=== PATIENT | male | born 1975 | race Caucasian/White ===

== ENCOUNTER 2016-12-05 11:01 | Observation (INO) | payer BC, OTHER ==
[~2016-12-05] VITALS: Ht 182.9 cm; Wt 131.3 kg
[~2016-12-05 11:01] MED LIST: CEFTIN500 MG PO; ZOFRAN4 MG PO
[2016-12-05 11:51] LABS: HEMATOCRIT 46.7 % (38.0-50.0); MCH 28.5 PG (29.0-34.0); MCHC 34.9 G/DL (30.0-36.0); MCV 81.6 FL (86-99); PLATELET COUNT 213 K/uL (156-360); RBC DIS.WIDTH-CV 12.5 % (11.8-14.6); RBC DIS.WIDTH-SD 37.1 % (39-53); RED BLOOD COUNT 5.72 M/uL (4.00-5.50); WHITE BLOOD COUNT 11.3 K/uL (4.1-10.2)
[2016-12-05 12:29] LABS: ANION GAP 9 MEQ/L (2-14); CHLORIDE 107 MEQ/L (99-109); GFR ESTIMATE (CALCULATED) > 59 mL/min/; GLUCOSE 91 mg/dL (70-99); POTASSIUM 3.8 MEQ/L (3.7-5.4); SAMPLE HEMOLYSIS CHECK 0; SAMPLE ICTERIC CHECK 0; SAMPLE LIPEMIA CHECK 0; SODIUM 140 MEQ/L (136-147); UREA NITROGEN (BUN) 13 mg/dL (9-23)
[2016-12-05 12:35] LABS: TROP-I INTERPRETATION NEGATIVE; TROPONIN-I 0.02 ng/mL (0.0-0.30)
[2016-12-05 12:39] LABS: MAGNESIUM 1.9 mg/dl (1.3-2.7)
[2016-12-05 17:57] VITALS: BP 137/83
[2016-12-05 18:50] LABS: HDL CHOLESTEROL 29 MG/DL (Desirable>=40); LDL CHOLESTEROL 59 mg/dL (Desirable<100); NON-HDL CHOLESTEROL 114 mg/dL (Desirable<160); TOTAL CHOLESTEROL 143 mg/dL (Desirable<200); TRIGLYCERIDES 273 MG/DL (Normal: <150)
[2016-12-05 19:01] LABS: TROP-I INTERPRETATION NEGATIVE; TROPONIN-I 0.01 ng/mL (0.0-0.30)
[2016-12-05 20:18] VITALS: BP 159/74
[2016-12-06 00:02] VITALS: BP 122/59
[2016-12-06 00:46] LABS: TROP-I INTERPRETATION NEGATIVE; TROPONIN-I 0.02 ng/mL (0.0-0.30)
[2016-12-06 04:01] VITALS: BP 120/74
[2016-12-06 07:02] LABS: INTER. NORMALIZED RATIO 1.1; PROTHROMBIN TIME 10.8 (9.2-11.2)
[2016-12-06 07:20] LABS: HEMATOCRIT 40.7 % (38.0-50.0); MCH 28.1 PG (29.0-34.0); MCHC 34.4 G/DL (30.0-36.0); MCV 81.6 FL (86-99); MEAN PLAT.VOLUME 8.9 uM^3 (9.0-12.4); PLATELET COUNT 168 K/uL (156-360); RBC DIS.WIDTH-CV 12.7 % (11.8-14.6); RBC DIS.WIDTH-SD 37.6 % (39-53); RED BLOOD COUNT 4.99 M/uL (4.00-5.50)
[2016-12-06 07:21] VITALS: BP 141/76
[2016-12-06] MEDS ORDERED: ASPIR-LOW81 MG PO (08:18)
== END 2016-12-06 09:45 | disposition home or self-care (01) ==
LOC: EME 11:01 → EDOF 14:35 → 5WEST 14:35 → EDOF 14:35 → 5WEST 17:46
PROVIDERS: Nurse Practitioner Adult Health
PROC: 5A2204Z Restoration of Cardiac Rhythm, Single (ICD-10-PCS; principal; 2016-12-05)
DX: I48.0 Paroxysmal atrial fibrillation (principal); R07.89 Other chest pain; K50.90 Crohn's disease, unspecified, without complications; E78.5 Hyperlipidemia, unspecified; E66.9 Obesity, unspecified; Z68.39 Body mass index [BMI] 39.0-39.9, adult; Z87.891 Personal history of nicotine dependence
CPT/HCPCS: 71010; 80048; 80061; 83735; 83880; 84443; 84484; 85027; 85610; 93005; 99281; 99285; G0378; J1650; J3475; J7030

== ENCOUNTER 2017-02-24 12:40 | Emergency (ER) | payer BC, OTHER ==
[~2017-02-24] VITALS: Ht 188 cm; Wt 137.0 kg
[~2017-02-24 12:40] MED LIST changes: +ASPIR-LOW81 MG PO
[2017-02-24 13:33] LABS: EOSINOPHIL (%) 1.6 % (0-5); EOSINOPHIL COUNT 0.2 K/uL (0-0.3); HEMATOCRIT 46.8 % (38.0-50.0); IMMATURE GRANULOCYTE (%) 0.9 % (0.0-0.7); IMMATURE GRANULOCYTE COUNT 0.1 K/uL; INSTRUMENT ABS NEUTROPHIL CT 7.1 K/uL; LYMPHOCYTE COUNT 2.8 K/uL (1.0-2.8); MCH 28.4 PG (29.0-34.0); MCHC 35.3 G/DL (30.0-36.0); MCV 80.6 FL (86-99); MEAN PLAT.VOLUME 8.7 uM^3 (9.0-12.4); MONOCYTE (%) 6.5 % (3-12); MONOCYTE COUNT 0.7 K/uL (0-0.8); NEUTROPHIL COUNT 7.1 K/uL (1.8-6.4); PLATELET COUNT 196 K/uL (156-360); RBC DIS.WIDTH-CV 13.1 % (11.8-14.6); RBC DIS.WIDTH-SD 37.2 % (39-53); RED BLOOD COUNT 5.81 M/uL (4.00-5.50); WHITE BLOOD COUNT 10.9 K/uL (4.1-10.2)
[2017-02-24 13:43] LABS: CHLORIDE 110 mEq/L (99-109); POTASSIUM 3.6 mEq/L (3.7-5.4); SODIUM 138 mEq/L (136-147)
[2017-02-24 13:44] LABS: GLUCOSE 100 mg/dL (70-99)
[2017-02-24 13:46] LABS: ANION GAP 5 MEQ/L (2-14)
[2017-02-24 13:48] LABS: GFR ESTIMATE (CALCULATED) > 59 mL/min/
[2017-02-24 13:49] LABS: UREA NITROGEN (BUN) 15 mg/dL (9-23)
[2017-02-24 13:54] LABS: TROP-I INTERPRETATION NEGATIVE; TROPONIN-I < 0.01 ng/mL (0.0-0.30)
[2017-02-24 15:31] VITALS: BP 143/86
[2017-02-24] MEDS ORDERED: CARDIZEM LA120 MG PO (15:57)
== END 2017-02-24 18:26 | disposition home or self-care (01) ==
LOC: EME 12:40
PROVIDERS: Emergency Medicine
PROC: 5A2204Z Restoration of Cardiac Rhythm, Single (ICD-10-PCS; principal; 2017-02-24)
DX: I48.91 Unspecified atrial fibrillation (principal)
CPT/HCPCS: 71010; 80048; 84484; 85025; 93005; 99281; 99285; J0153

== ENCOUNTER 2017-08-07 23:56 | Emergency (ER) | payer BC, OTHER ==
[~2017-08-07] VITALS: Ht 182.9 cm; Wt 136.3 kg
[~2017-08-07 23:56] MED LIST changes: +CARDIZEM LA120 MG PO
[2017-08-08] MEDS ORDERED: PERCOCET 5/31 TABLET PO (01:33)
[2017-08-08] MEDS ORDERED: ULTRAM50 MG PO (01:33)
[2017-08-08 02:20] VITALS: BP 126/79
== END 2017-08-08 02:21 | disposition home or self-care (01) ==
LOC: EME 23:56
PROC: 0RSJXZZ Reposition Right Shoulder Joint, External Approach (ICD-10-PCS; principal; 2017-08-07)
DX: S43.014A Anterior dislocation of right humerus, initial encounter (principal); S00.81XA Abrasion of other part of head, initial encounter; Y04.2XXA Assault by strike against or bumped into by another person, initial encounter; W03.XXXA Other fall on same level due to collision with another person, initial encounter; I10 Essential (primary) hypertension
CPT/HCPCS: 73020; 73030; 99281; 99285; J3010

== ENCOUNTER 2018-02-14 02:47 | Emergency (ER) | payer BC, OTHER ==
[~2018-02-14] VITALS: Ht 182.9 cm; Wt 135.5 kg
[~2018-02-14 02:47] MED LIST changes: +PERCOCET 5/31 TABLET PO; +ULTRAM50 MG PO
[2018-02-14 03:22] LABS: BASOPHIL (%) 0.4 % (0-1); BASOPHIL COUNT 0.1 K/uL (0-0.1); EOSINOPHIL (%) 1.6 % (0-5); EOSINOPHIL COUNT 0.2 K/uL (0-0.3); HEMATOCRIT 41.3 % (38.0-50.0); HEMOGLOBIN 14.7 G/DL (12.5-16.6); IMMATURE GRANULOCYTE (%) 0.4 % (0.0-0.7); LYMPHOCYTE (%) 22.2 % (15-42); LYMPHOCYTE COUNT 2.6 K/uL (1.0-2.8); MCH 29.5 PG (29.0-34.0); MCHC 35.6 G/DL (30.0-36.0); MCV 82.8 FL (86-99); MONOCYTE (%) 9.1 % (3-12); MONOCYTE COUNT 1.1 K/uL (0-0.8); NEUTROPHIL (%) 66.3 % (45-76); NEUTROPHIL COUNT 7.8 K/uL (1.8-6.4); PLATELET COUNT 214 K/uL (156-360); RBC DIS.WIDTH-CV 12.8 % (11.8-14.6); RBC DIS.WIDTH-SD 38.4 % (39-53); RED BLOOD COUNT 4.99 M/uL (4.00-5.50); WHITE BLOOD COUNT 11.8 K/uL (4.1-10.2)
[2018-02-14 03:35] LABS: PTT 28.1 SEC (25-37)
[2018-02-14 03:37] LABS: ALBUMIN 3.7 g/dL (3.2-4.8); CHLORIDE 109 mEq/L (99-109); POTASSIUM 3.7 mEq/L (3.7-5.4); SODIUM 136 mEq/L (136-147)
[2018-02-14 03:39] LABS: GLUCOSE 97 mg/dL (70-99)
[2018-02-14 03:40] LABS: TOTAL PROTEIN 6.7 g/dL (6.4-8.3)
[2018-02-14 03:41] LABS: TOTAL BILIRUBIN 0.6 mg/dL (0.0-1.0)
[2018-02-14 03:43] LABS: ALKALINE PHOSPHATASE 93 IU/L (3-129); GFR ESTIMATE (CALCULATED) > 59 mL/min/ (58.99-99999)
[2018-02-14 03:44] LABS: UREA NITROGEN (BUN) 19 mg/dL (9-23)
[2018-02-14 03:45] LABS: AST (GOT) 57 IU/L (2-34)
[2018-02-14 03:46] LABS: ALT (GPT) 44 IU/L (3-49); LIPASE 39 U/L (1.0-51.0)
[2018-02-14 03:48] LABS: TROP-I INTERPRETATION NEGATIVE; TROPONIN-I < 0.01 ng/mL (0.0-0.30)
[2018-02-14 07:41] LABS: TROP-I INTERPRETATION NEGATIVE; TROPONIN-I < 0.01 ng/mL (0.0-0.30)
[2018-02-14 08:20] VITALS: BP 110/69
== END 2018-02-14 08:20 | disposition home or self-care (01) ==
LOC: EME 02:47
PROVIDERS: Emergency Medicine
PROC: 5A2204Z Restoration of Cardiac Rhythm, Single (ICD-10-PCS; principal; 2018-02-14)
DX: I48.91 Unspecified atrial fibrillation (principal); K21.9 Gastro-esophageal reflux disease without esophagitis; K50.90 Crohn's disease, unspecified, without complications; G43.909 Migraine, unspecified, not intractable, without status migrainosus; Z90.49 Acquired absence of other specified parts of digestive tract
CPT/HCPCS: 71045; 80053; 83690; 84484; 85025; 85610; 85730; 93005; 99281; 99285; J2690; J7030; J7050

== ENCOUNTER 2018-03-09 19:55 | Emergency (ER) | payer BC, OTHER ==
[~2018-03-09] VITALS: Ht 182.9 cm; Wt 133.4 kg
[2018-03-09 20:17] LABS: HEMATOCRIT 39.9 % (38.0-50.0); MCH 29.5 PG (29.0-34.0); MCHC 35.1 G/DL (30.0-36.0); MCV 84.2 FL (86-99); PLATELET COUNT 251 K/uL (156-360); RBC DIS.WIDTH-CV 12.8 % (11.8-14.6); RBC DIS.WIDTH-SD 39.3 % (39-53); RED BLOOD COUNT 4.74 M/uL (4.00-5.50); WHITE BLOOD COUNT 10.3 K/uL (4.1-10.2)
[2018-03-09 20:33] LABS: CHLORIDE 108 mEq/L (99-109); POTASSIUM 3.9 mEq/L (3.7-5.4); SODIUM 137 mEq/L (136-147)
[2018-03-09 20:35] LABS: GLUCOSE 133 mg/dL (70-99)
[2018-03-09 20:38] LABS: TROP-I INTERPRETATION NEGATIVE; TROPONIN-I 0.01 ng/mL (0.0-0.30)
[2018-03-09 20:39] LABS: GFR ESTIMATE (CALCULATED) > 59 mL/min/ (58.99-99999)
[2018-03-09 20:40] LABS: UREA NITROGEN (BUN) 15 mg/dL (9-23)
[2018-03-09 21:26] LABS: D-DIMER ELISA < 150.00 ng/mLDDU (<230)
[2018-03-09 22:43] LABS: TROP-I INTERPRETATION NEGATIVE; TROPONIN-I < 0.01 ng/mL (0.0-0.30)
[2018-03-09 23:10] VITALS: BP 128/77
== END 2018-03-09 23:13 | disposition home or self-care (01) ==
LOC: EME 19:55
PROVIDERS: Emergency Medicine
DX: R07.2 Precordial pain (principal); R06.02 Shortness of breath
CPT/HCPCS: 71046; 80048; 84484; 85027; 85379; 93005; 99281; 99284

== ENCOUNTER 2018-05-13 07:43 | Emergency (ER) | payer BC ==
[~2018-05-13] VITALS: Ht 182.9 cm; Wt 134.2 kg
[2018-05-13 10:01] VITALS: BP 135/79
== END 2018-05-13 10:09 | disposition home or self-care (01) ==
LOC: EME 07:43
DX: L97.519 Non-pressure chronic ulcer of other part of right foot with unspecified severity (principal); K50.90 Crohn's disease, unspecified, without complications; K21.9 Gastro-esophageal reflux disease without esophagitis
CPT/HCPCS: 73630; 87070; 87075; 87077; 87186; 87205; 99281; 99284